=== PATIENT | male | born 1955 | race Caucasian/White ===

== ENCOUNTER 2016-06-18 19:50 | Emergency (ER) | payer MEDICARE ==
[~2016-06-18] VITALS: Ht 170.1 cm; Wt 94.3 kg
[~2016-06-18 19:50] MED LIST: ACTOPLUS MET 501 TAB PO; ACTOPLUS MET 851 TA1 PO; AMITRIPTYLINE; CELEXA40 MG PO; DIOVAN160 MG PO; DOESNT KNOW MEDS; DOXEPIN50 MG PO; GLIPIZIDE ER10 MG PO; HYDROCODONE BIT1 T55 PO; IMDUR SA30 MG PO; ISOSORBIDE30 MG PO; JANUVIA100 MG PO; LANTUS; LANTUS100 U/ML SC; LYRICA150 MG PO; METOPROLOL100 MG PO; MIRALAX POWDER17 G1 PO; MOTRIN800 MG PO; NEURONTIN300 MG PO; NOVOLOG; NOVOLOG (INSULI10 ML IV; NOVOLOG100 U/ML SC; OPANA10 MG PO; PEN-VEE K500 MG PO; PERCOCET 325 MG1 TA6 PO; PLAVIX75 MG PO; PRAVACHOL40 MG PO; PRIMIDONE50 MG PO; ROZEREM8 MG PO; SEPTRA DS 800 M1 TAB PO; SEROQUEL XR150 MG PO; TRAZODONE50 MG PO; TRIFLUOPERAZINE PO; TRILIPIX; TRILIPIX45 M1 PO; VICODIN 500 MG-1 TAB PO; VITAMIN D2400 IU PO; ZANTAC 150150 MG PO; ZETIA10 MG PO
[2016-06-18 19:58] VITALS: BP 162/83
[2016-06-18] MEDS ORDERED: PERCOCET 325 MG1 TA7 PO (20:00)
[2016-06-18] MEDS ORDERED: CYCLOBENZAPRINE10 MG PO (21:20)
[2016-06-18] MEDS ORDERED: NAPROSYN500 MG PO (21:20)
== END 2016-06-18 21:24 | disposition home or self-care (01) ==
LOC: ED 19:50
DX: S39.012A Strain of muscle, fascia and tendon of lower back, initial encounter (principal); Z79.4 Long term (current) use of insulin; X58.XXXA Exposure to other specified factors, initial encounter; Y93.89 Activity, other specified; Y92.9 Unspecified place or not applicable; Y99.9 Unspecified external cause status

== ENCOUNTER 2016-09-02 10:59 | Emergency (ER) | payer MEDICARE ==
[~2016-09-02] VITALS: Ht 177.8 cm; Wt 102.1 kg
[~2016-09-02 10:59] MED LIST changes: +CYCLOBENZAPRINE10 MG PO; +NAPROSYN500 MG PO; +PERCOCET 325 MG1 TA7 PO
[2016-09-02 11:05] VITALS: BP 135/93
[2016-09-02 11:15] LABS: BASO # 0.1 10*3/uL (0.0-0.1); BASO % 0.5 % (0.0-1.0); EOS # 0.2 10*3/uL (0.0-0.4); EOS % 1.8 % (1.0-4.0); HEMATOCRIT 41.7 % (42.0-52.0); HEMOGLOBIN 14.2 g/dl (14.0-18.0); LYMPH # 2.2 10*3/uL (1.3-4.4); LYMPH % 19.8 % (27.0-41.0); MEAN CELL VOLUME 93.7 fl (80.0-94.0); MEAN CORPUSCULAR HGB 31.9 pg (27.0-31.0); MEAN CORPUSCULAR HGB CONC 34.1 g/dl (33.0-37.0); MEAN PLATELET VOLUME 10.5 fl (9.6-12.3); MONO # 1.3 10*3/uL (0.1-1.0); MONO % 12.3 % (3.0-9.0); NEUT # 7.1 10*3/uL (2.3-7.9); NEUT % 65.2 % (47.0-73.0); PLATELET COUNT AUTOMATED 321 10*3/uL (130-400); RED BLOOD COUNT 4.45 10*6/uL (4.50-5.90); RED CELL DISTRI WIDTH 14.4 % (0-14.5); WHITE BLOOD COUNT 10.9 10*3/uL (4.8-10.8)
[2016-09-02 11:25] LABS: BUN 24 mg/dl (7-24); CARBON DIOXIDE 29 mmol/L (21-32); CHLORIDE 99 mmol/L (98-107); EST GLOM FILT AFRICAN AMERICAN > 60 ml/min; GLUCOSE 222 mg/dL (65-99); SODIUM 139 mmol/L (136-145)
[2016-09-02] MEDS ORDERED: IBUPROFEN600 MG PO (12:48)
[2016-09-02] MEDS ORDERED: ULTRAM50 MG PO (12:48)
== END 2016-09-02 14:02 | disposition home or self-care (01) ==
LOC: ED 10:59
PROVIDERS: Emergency Medicine
DX: S92.355A Nondisplaced fracture of fifth metatarsal bone, left foot, initial encounter for closed fracture (principal); S92.345A Nondisplaced fracture of fourth metatarsal bone, left foot, initial encounter for closed fracture; S92.335A Nondisplaced fracture of third metatarsal bone, left foot, initial encounter for closed fracture; S20.211A Contusion of right front wall of thorax, initial encounter; Z98.890 Other specified postprocedural states; Z79.899 Other long term (current) drug therapy; W19.XXXA Unspecified fall, initial encounter; Y93.89 Activity, other specified; Y92.89 Other specified places as the place of occurrence of the external cause; Y99.9 Unspecified external cause status

== ENCOUNTER → 2016-10-23 | Outpatient (CLI) | payer MEDICARE ==
[~2016-10-23] MED LIST changes: +IBUPROFEN600 MG PO; +ULTRAM50 MG PO
== END | disposition home or self-care (01) ==
LOC: RAD 12:08
DX: S92.902D Unspecified fracture of left foot, subsequent encounter for fracture with routine healing (principal); X58.XXXD Exposure to other specified factors, subsequent encounter

== ENCOUNTER → 2017-05-22 | Outpatient (CLI) | payer MEDICARE | END | disposition home or self-care (01) | LOC: RAD 09:28 | DX: M17.12 Unilateral primary osteoarthritis, left knee (principal) ==

== ENCOUNTER → 2018-10-17 | Outpatient (CLI) | payer MEDICARE ==
[~2018-10-17] MED LIST changes: +DOXYCYCLINE100 M3 PO; +DOXYCYCLINE100 MG PO; +FETZIMA40 M1 PO; +LANTUS SOL100 UNIT/1 SQ; -LANTUS100 U/ML SC; +LYRICA150 M1 PO; -LYRICA150 MG PO; +Mysoline50 MG PO; +OMEPRAZOLE40 MG PO; +PERCOCET 5-3251 EACH PO; -PRIMIDONE50 MG PO; +SEPTDS PO; +TAMSULOSIN HCL0.4 MG PO; +ZANAFLEX4 M1 PO
== END | disposition home or self-care (01) ==
LOC: WOUNDCARE 10-10 15:20 → EDSTATUS 15:31 → WOUNDCARE 15:32
DX: L02.211 Cutaneous abscess of abdominal wall (principal); S31.104A Unspecified open wound of abdominal wall, left lower quadrant without penetration into peritoneal cavity, initial encounter; I25.10 Atherosclerotic heart disease of native coronary artery without angina pectoris; E11.40 Type 2 diabetes mellitus with diabetic neuropathy, unspecified; I10 Essential (primary) hypertension; K21.9 Gastro-esophageal reflux disease without esophagitis; E78.5 Hyperlipidemia, unspecified; I25.2 Old myocardial infarction; E55.9 Vitamin D deficiency, unspecified; Z95.818 Presence of other cardiac implants and grafts; X58.XXXA Exposure to other specified factors, initial encounter; Y93.89 Activity, other specified; Y92.89 Other specified places as the place of occurrence of the external cause; Y99.8 Other external cause status

== ENCOUNTER → 2018-10-22 | Outpatient (CLI) | payer MEDICARE | END | disposition home or self-care (01) | LOC: WOUNDCARE 00:44 | DX: L02.211 Cutaneous abscess of abdominal wall (principal); S31.104D Unspecified open wound of abdominal wall, left lower quadrant without penetration into peritoneal cavity, subsequent encounter; I25.10 Atherosclerotic heart disease of native coronary artery without angina pectoris; E11.40 Type 2 diabetes mellitus with diabetic neuropathy, unspecified; I10 Essential (primary) hypertension; K21.9 Gastro-esophageal reflux disease without esophagitis; E78.5 Hyperlipidemia, unspecified; I25.2 Old myocardial infarction; E55.9 Vitamin D deficiency, unspecified; X58.XXXD Exposure to other specified factors, subsequent encounter ==

== ENCOUNTER → 2018-10-29 | Outpatient (CLI) | payer MEDICARE | END | disposition home or self-care (01) | LOC: WOUNDCARE 01:38 | DX: L02.211 Cutaneous abscess of abdominal wall (principal); S31.104D Unspecified open wound of abdominal wall, left lower quadrant without penetration into peritoneal cavity, subsequent encounter; I25.10 Atherosclerotic heart disease of native coronary artery without angina pectoris; E11.40 Type 2 diabetes mellitus with diabetic neuropathy, unspecified; I10 Essential (primary) hypertension; K21.9 Gastro-esophageal reflux disease without esophagitis; E78.5 Hyperlipidemia, unspecified; I25.2 Old myocardial infarction; E55.9 Vitamin D deficiency, unspecified; X58.XXXD Exposure to other specified factors, subsequent encounter ==

== ENCOUNTER → 2018-11-05 | Outpatient (CLI) | payer MEDICARE | END | disposition home or self-care (01) | LOC: WOUNDCARE 01:41 | DX: L02.211 Cutaneous abscess of abdominal wall (principal); S31.104D Unspecified open wound of abdominal wall, left lower quadrant without penetration into peritoneal cavity, subsequent encounter; E11.40 Type 2 diabetes mellitus with diabetic neuropathy, unspecified; I10 Essential (primary) hypertension; I25.10 Atherosclerotic heart disease of native coronary artery without angina pectoris; I25.2 Old myocardial infarction; K21.9 Gastro-esophageal reflux disease without esophagitis; E78.5 Hyperlipidemia, unspecified; E55.9 Vitamin D deficiency, unspecified; H49.20 Sixth [abducent] nerve palsy, unspecified eye; X58.XXXD Exposure to other specified factors, subsequent encounter ==

== ENCOUNTER → 2018-11-20 | Outpatient (CLI) | payer MEDICARE ==
[2018-11-20 15:35] LABS: BASO # 0.1 10*3/uL (0.0-0.1); BASO % 0.5 % (0.0-1.0); EOS # 0.2 10*3/uL (0.0-0.4); EOS % 1.8 % (1.0-4.0); HEMATOCRIT 43.9 % (42.0-52.0); HEMOGLOBIN 14.6 g/dl (14.0-18.0); LYMPH # 3.1 10*3/uL (1.3-4.4); LYMPH % 30.9 % (27.0-41.0); MEAN CELL VOLUME 94.6 fl (80.0-94.0); MEAN CORPUSCULAR HGB 31.5 pg (27.0-31.0); MEAN CORPUSCULAR HGB CONC 33.3 g/dl (33.0-37.0); MEAN PLATELET VOLUME 11.1 fl (9.6-12.3); MONO % 9.6 % (3.0-9.0); NEUT # 5.6 10*3/uL (2.3-7.9); NEUT % 56.7 % (47.0-73.0); PLATELET COUNT AUTOMATED 330 10*3/uL (130-400); RED BLOOD COUNT 4.64 10*6/uL (4.50-5.90); RED CELL DISTRI WIDTH 13.5 % (0-14.5); WHITE BLOOD COUNT 9.9 10*3/uL (4.8-10.8)
[2018-11-20 15:58] LABS: ALBUMIN 3.4 gm/dl (3.1-4.5); BUN 11 mg/dl (7-24); CHLORIDE 104 mmol/L (98-107); SGPT/ALT 22 U/L (12-78); SODIUM 137 mmol/L (136-145)
[2018-11-20 16:12] LABS: ALKALINE PHOSPHATASE 107 U/L (45-117); CREATININE 0.84 mg/dL (0.70-1.30); SGOT/AST 12 IU/L (3-35); TOTAL PROTEIN 7.2 gm/dL (6.4-8.2)
== END | disposition home or self-care (01) ==
LOC: LAB 14:04
PROVIDERS: Internal Medicine
DX: J43.9 Emphysema, unspecified (principal); E11.9 Type 2 diabetes mellitus without complications; I10 Essential (primary) hypertension; Z87.891 Personal history of nicotine dependence; Z79.899 Other long term (current) drug therapy

== ENCOUNTER → 2019-02-24 | Outpatient (CLI) | payer MEDICARE | END | disposition home or self-care (01) | LOC: NM 02-19 12:52 | DX: R10.13 Epigastric pain (principal); R11.2 Nausea with vomiting, unspecified; E11.9 Type 2 diabetes mellitus without complications; I10 Essential (primary) hypertension; I25.10 Atherosclerotic heart disease of native coronary artery without angina pectoris ==

== ENCOUNTER → 2019-06-02 | Outpatient (CLI) | payer MEDICARE ==
[2019-06-02 17:03] LABS: BASO % 0.4 % (0.0-1.0); EOS # 0.1 10*3/uL (0.0-0.4); EOS % 1.3 % (1.0-4.0); HEMATOCRIT 45.7 % (42.0-52.0); HEMOGLOBIN 15.5 g/dl (14.0-18.0); LYMPH # 3.2 10*3/uL (1.3-4.4); LYMPH % 30.7 % (27.0-41.0); MEAN CELL VOLUME 91.6 fl (80.0-94.0); MEAN CORPUSCULAR HGB 31.1 pg (27.0-31.0); MEAN CORPUSCULAR HGB CONC 33.9 g/dl (33.0-37.0); MEAN PLATELET VOLUME 10.9 fl (9.6-12.3); MONO # 1.1 10*3/uL (0.1-1.0); MONO % 10.3 % (3.0-9.0); NEUT % 56.8 % (47.0-73.0); PLATELET COUNT AUTOMATED 353 10*3/uL (130-400); RED BLOOD COUNT 4.99 10*6/uL (4.50-5.90); RED CELL DISTRI WIDTH 13.9 % (0-14.5); WHITE BLOOD COUNT 10.6 10*3/uL (4.8-10.8)
[2019-06-02 17:21] LABS: ALBUMIN 3.6 gm/dl (3.1-4.5); ALKALINE PHOSPHATASE 107 U/L (45-117); BUN 8 mg/dl (7-24); CHLORIDE 108 mmol/L (98-107); CREATININE 0.85 mg/dL (0.70-1.30); POTASSIUM 3.7 mmol/L (3.5-5.1); SGOT/AST 19 IU/L (3-35); SGPT/ALT 24 U/L (12-78); SODIUM 138 mmol/L (136-145); TOTAL PROTEIN 7.4 gm/dL (6.4-8.2)
== END | disposition home or self-care (01) ==
LOC: LAB 16:16
PROVIDERS: Internal Medicine
DX: J44.9 Chronic obstructive pulmonary disease, unspecified (principal)

== ENCOUNTER → 2019-06-24 | Outpatient (CLI) | payer MEDICARE ==
--- NOTE | 2019-06-24 10:38 | NUR ---
INFORMED CONSENT SIGNED FOR LEXISCAN STRESS TEST WITH DR. PARKS. RESTING EKG NSR, HR 92, BP 164/78. PULSE OX 96% AND LUNGS CLEAR. COMPLETED ONE MINUTE OF LEXISCAN PROTOCOL RECEIVING LEXISCAN 0.4MG OVER 10 SECONDS. ISOLATED PVC'S NOTED WITH NO ST CHANGES. PT C/O SOB AND LIGHTHEADEDNESS. LAST RECOVERY HR 105, BP 134/72. WAITING NUCLEAR SCANNING IN STABLE CONDITION.
== END | disposition home or self-care (01) ==
LOC: CARD 00:23
DX: R06.02 Shortness of breath (principal)

== ENCOUNTER → 2020-01-26 | Outpatient (CLI) | payer MEDICARE ==
[2020-01-26 14:09] LABS: BASO % 0.4 % (0.0-1.0); EOS # 0.2 10*3/uL (0.0-0.4); EOS % 2.6 % (1.0-4.0); HEMATOCRIT 45.3 % (42.0-52.0); LYMPH # 2.9 10*3/uL (1.3-4.4); LYMPH % 30.9 % (27.0-41.0); MEAN CELL VOLUME 92.8 fl (80.0-94.0); MEAN CORPUSCULAR HGB 31.4 pg (27.0-31.0); MEAN CORPUSCULAR HGB CONC 33.8 g/dl (33.0-37.0); MEAN PLATELET VOLUME 10.7 fl (9.6-12.3); MONO # 0.9 10*3/uL (0.1-1.0); MONO % 9.3 % (3.0-9.0); NEUT # 5.3 10*3/uL (2.3-7.9); NEUT % 56.5 % (47.0-73.0); PLATELET COUNT AUTOMATED 338 10*3/uL (130-400); RED BLOOD COUNT 4.88 10*6/uL (4.50-5.90); RED CELL DISTRI WIDTH 14.2 % (0-14.5); WHITE BLOOD COUNT 9.4 10*3/uL (4.8-10.8)
[2020-01-26 14:43] LABS: BUN 6 mg/dl (7-24); CHLORIDE 110 mmol/L (98-107); CREATININE 0.72 mg/dL (0.70-1.30); FREE T4 1.02 ng/dl (0.76-1.46); POTASSIUM 3.6 mmol/L (3.5-5.1); SODIUM 141 mmol/L (136-145)
== END | disposition home or self-care (01) ==
LOC: LAB 13:33
PROVIDERS: Internal Medicine
DX: J44.9 Chronic obstructive pulmonary disease, unspecified (principal); I11.0 Hypertensive heart disease with heart failure; I50.30 Unspecified diastolic (congestive) heart failure; E11.9 Type 2 diabetes mellitus without complications

== ENCOUNTER 2020-03-09 08:24 | Inpatient (IN) | payer MEDICARE ==
[~2020-03-09] VITALS: Ht 170.1 cm; Wt 120.9 kg
[~2020-03-09 08:24] MED LIST changes: +LOPRESSOR100 M1 PO; -METOPROLOL100 MG PO
[2020-03-09 08:33] VITALS: BP 92/55
[2020-03-09 09:29] LABS: BASO % 0.2 % (0.0-1.0); EOS # 0.3 10*3/uL (0.0-0.4); EOS % 2.1 % (1.0-4.0); LYMPH # 2.9 10*3/uL (1.3-4.4); LYMPH % 22.1 % (27.0-41.0); MEAN CELL VOLUME 95.4 fl (80.0-94.0); MEAN CORPUSCULAR HGB 30.7 pg (27.0-31.0); MEAN CORPUSCULAR HGB CONC 32.2 g/dl (33.0-37.0); MEAN PLATELET VOLUME 10.7 fl (9.6-12.3); MONO # 1.4 10*3/uL (0.1-1.0); MONO % 10.7 % (3.0-9.0); NEUT # 8.4 10*3/uL (2.3-7.9); NEUT % 64.5 % (47.0-73.0); PLATELET COUNT AUTOMATED 365 10*3/uL (130-400); RED BLOOD COUNT 4.82 10*6/uL (4.50-5.90); WHITE BLOOD COUNT 13.1 10*3/uL (4.8-10.8)
--- NOTE | 2020-03-09 09:44 | NUR ---
PT STILL IN X-RAY, ATTEMPT FOR IV WHEN PT RETURNS
[2020-03-09 09:46] LABS: ACT PARTIAL THROMBO TIME 31.3 SECONDS (20.0-32.1)
[2020-03-09 09:48] LABS: ALBUMIN 3.4 gm/dl (3.1-4.5); ALKALINE PHOSPHATASE 136 U/L (45-117); BUN 11 mg/dl (7-24); CHLORIDE 106 mmol/L (98-107); CPK 67 U/L (39-308); CREATININE 0.88 mg/dL (0.70-1.30); POTASSIUM 4.2 mmol/L (3.5-5.1); SGOT/AST 8 IU/L (3-35); SGPT/ALT 20 U/L (12-78); SODIUM 137 mmol/L (136-145); TOTAL PROTEIN 7.2 gm/dL (6.4-8.2)
[2020-03-09 09:51] LABS: TROPONIN I < 0.015 ng/ml (<0.045)
[2020-03-09 10:24] LABS: BILIRUBIN Negative; BLOOD Negative (Negative); CLARITY Clear (Clear); COLOR Yellow (Yellow); GLUCOSE 3+; KETONE Trace; LEUKO ESTERASE Negative (Negative); NITRITE Negative (Negative); SPECIFIC GRAVITY >= 1.030 (1.001-1.030); UROBILINOGEN 0.2 E.U./dl (0.0-1.0)
[2020-03-09 10:25] LABS: CALCIUM OXALATE CRYSTALS 1+
--- NOTE | 2020-03-09 11:20 | NUR ---
RM 421 BEING CLEANED FOR TRANSPORT
[2020-03-09] MEDS ORDERED: PERCOCET 7.5-31 EACH PO (11:30)
[2020-03-09] MEDS ORDERED: JARDIANCE25 MG PO (11:35)
[2020-03-09] MEDS ORDERED: LOSARTAN POTASS50 M1 PO (11:59)
[2020-03-09 12:15] VITALS: BP 116/61
--- NOTE | 2020-03-09 12:15 | NUR ---
A 64, admitted to , under the services of EMEKA Doran MD with a diagnosis of FALL, UNABLE TO AMBULATE. Chief complaint is SYNCOPE. Patient arrived via ambulance from ER. Monitor applied. Initial assessment completed. Vital signs taken and recorded. EMEKA DORAN MD notified of admission to the unit. Orders received. See assessment for past medical history, medications and allergies. Patient and/or family oriented to unit. [facility] visitation policy reviewed. Clothing/patient valuable form completed. BUD SILVA
--- NOTE | 2020-03-09 12:31 | NUR ---
MED REC UPDATED VIA CLAIM HISTORY.
--- NOTE | 2020-03-09 12:33 | NUR ---
, RESIDENT WITH IN TO SEE PT AT THIS TIME. INFORMED MED REC WAS UPDATED.
[2020-03-09] MEDS ORDERED: ASPIRIN ADULT L81 M1 PO (12:36)
[2020-03-09] MEDS ORDERED: NITROSTAT0.3 M1 SL (12:37)
--- NOTE | 2020-03-09 14:10 | NUR ---
PATIENT INSTRUCTED ON FLUTTER Q1, GOOD PATIENT EFFORT.
--- NOTE | 2020-03-09 14:46 | NUR ---
ABEL PAGAN NOTIFIED OF SURGICAL CONSULT. SAID SHE WOULD COME TO SEE HIM.
[2020-03-09 16:00] VITALS: BP 126/59
--- NOTE | 2020-03-09 16:13 | NUR ---
RODRIGUE NOTIFIED OF NEW CONSULT FOR . SAID SHE WOULD NOTIFY HIM.
--- NOTE | 2020-03-09 16:18 | NUR ---
NOTIFIED OF NEW CONSULT. SAID HE WOULD SEE THE PT TOMORROW MORNING. INFORMED THAT HE IS SCHEDULED FOR AN EGD IN THE MORNING. SAID OK.
--- NOTE | 2020-03-09 16:46 | NUR ---
DILAUDID GIVEN FOR PAIN RATED 9/10 TO RT FLANK. WILL MONITOR. CALL LIGHT IN REACH.
--- NOTE | 2020-03-09 17:18 | NUR ---
PER PT, DIALUDID WAS EFFECTIVE. CALL LIGHT IN REACH.
[2020-03-09 17:35] LABS: BILIRUBIN Negative; BLOOD Negative (Negative); CLARITY Clear (Clear); COLOR Yellow (Yellow); GLUCOSE 3+; KETONE Trace; SPECIFIC GRAVITY > 1.030 (1.001-1.030)
[2020-03-09 17:36] LABS: LEUKO ESTERASE Negative (Negative); NITRITE Negative (Negative); UROBILINOGEN 0.2 E.U./dl (0.0-1.0)
[2020-03-09 17:39] LABS: BACTERIA TRACE; EPITHELIAL CELLS 0-2; RBC 0-2 rbc/hpf (0-2); WBC 0-2 wbc/hpf (0-5)
--- NOTE | 2020-03-09 19:38 | NUR ---
24 HR chart check completed.
[2020-03-09 20:00] VITALS: BP 141/71
--- NOTE | 2020-03-09 20:16 | NUR ---
RESTING IN BED. RESPIRATIONS EASY. LUNGS DIMINISHED, CLEAR. PULSE OX 97% RA. MEDICATED WITH PERCOCET PER PRN ORDER FOR COMPLAINTS OF RIGHT SIDED RIB PAIN RATING AN 8. CALL LIGHT WITHIN REACH. WILL MONITOR
--- NOTE | 2020-03-09 21:00 | NUR ---
EARLIER PERCOCET EFFECTIVE. RESTING WITH EYES CLOSED. RESPIRATIONS EASY. CALL LIGHT WITHIN REACH
--- NOTE | 2020-03-09 22:00 | NUR ---
BSG 192, DECLINES SS COVERAGE BUT COVERED WITH LANTUS. WILL MONITOR
[2020-03-10] VITALS (9 sets, daily range): BP systolic 111–154; BP diastolic 32–81
--- NOTE | 2020-03-10 | NUR ---
SLEEPING. NO S/S DISTRESS NOTED. RESPIRATIONS EASY. VSS. CALL LIGHT WITHIN REACH.
--- NOTE | 2020-03-10 04:05 | NUR ---
SLEEPING. NO DISTRESS NOTED. RESPIRATIONS EASY. CALL LIGHT WITHIN REACH
--- NOTE | 2020-03-10 06:00 | NUR ---
SLEPT THROUGHOUT NIGHT WITH NO DISTRESS NOTED. RESPIRATIONS EASY. CALL LIGHT WITHIN REACH. NO VOICED COMPLAINTS THIS SHIFT. NPO FOR EGD THIS AM.
[2020-03-10 06:40] LABS: BASO % 0.3 % (0.0-1.0); EOS # 0.3 10*3/uL (0.0-0.4); EOS % 3.2 % (1.0-4.0); HEMATOCRIT 46.5 % (42.0-52.0); LYMPH # 2.6 10*3/uL (1.3-4.4); LYMPH % 25.1 % (27.0-41.0); MEAN CELL VOLUME 95.7 fl (80.0-94.0); MEAN CORPUSCULAR HGB 31.5 pg (27.0-31.0); MEAN CORPUSCULAR HGB CONC 32.9 g/dl (33.0-37.0); MEAN PLATELET VOLUME 10.8 fl (9.6-12.3); MONO # 1.2 10*3/uL (0.1-1.0); MONO % 11.5 % (3.0-9.0); NEUT # 6.2 10*3/uL (2.3-7.9); NEUT % 59.3 % (47.0-73.0); PLATELET COUNT AUTOMATED 314 10*3/uL (130-400); RED BLOOD COUNT 4.86 10*6/uL (4.50-5.90); WHITE BLOOD COUNT 10.5 10*3/uL (4.8-10.8)
[2020-03-10 07:02] LABS: BUN 14 mg/dl (7-24); CHLORIDE 109 mmol/L (98-107); CREATININE 0.51 mg/dL (0.70-1.30); POTASSIUM 3.8 mmol/L (3.5-5.1); SODIUM 138 mmol/L (136-145)
--- NOTE | 2020-03-10 07:30 | NUR ---
TAKEN TO OR FOR EGD.
--- NOTE | 2020-03-10 09:00 | NUR ---
Fork Repairer in to talk to patient. Patient states lives at home with his step-son and his family checking in on him. There are no steps in the home. Physician: Dr. Westley Daly [facility]: [facility] Home health services: none Patient's level of ADLs: MINIMAL ASSIST Patient has working utilities: yes DME: cane Follow-up physician's appointment after d/c: he prefers to make his own follow up appt after discharge Does patient want to access PORTAL?: no Discharge plan discussed with patient. He lives at home with his step-son and family checking in on him. He is independent in his ADLs and ambulates with a cane. Discussed short term SNF and home health care services and he declines. CM will continue to follow for any discharge planning needs. When medically stable he will be discharged to home. He states he is unsure of discharge transportation at this time. He states he is awaiting his knee to be drained and injected. ABEL COOMBS
--- NOTE | 2020-03-10 09:31 | NUR ---
MEDICATED WITH PRN PERCOCET PER ORDER AND REQUEST FOR R SIDE AND L KNEE PAIN.
--- NOTE | 2020-03-10 10:20 | NUR ---
PERCOCET HELPED SOME.
--- NOTE | 2020-03-10 11:02 | NUR ---
AT BEDSIDE DRAINING FLUID FROM LEFT KNEE.
--- NOTE | 2020-03-10 12:13 | NUR ---
PHYSICAL THERAPY Nursing screen received and chart reviewed. PT order received. Will follow to complete skilled PT evaluation. Thank you. Piper Castellanos,PT,DPT
--- NOTE | 2020-03-10 12:30 | NUR ---
PATIENT TO RADIOLOGY FOR CT KNEE AND MODIFIED BARIUM SWALLOW.
--- NOTE | 2020-03-10 12:35 | NUR ---
SPEECH PATHOLOGY Modified barium swallow completed as per orders due to patient reports of dysphagia with solid and liquid. He reported coughing episodes intermittently which have occurred over the past month. Medical history includes inability to ambulate due to recent fall at home, DM, HTN, CAD, GERD, depression, back pain, cranial nerve palsy, essential tremor, hx of throat surgery in the past. Patient stated that he had fatty tissue removed from his throat. He receives a regular diet and thin liquid. oral peripheral exam revealed presence of natural teeth with many missing. Lingual/labial and buccal skills were WNL in terms of strength, ROM and coordination. Results of MBS revealed skills essentially WFL. Transient penetration occurred with thin liquid in large sips taken by cup and straw. No penetration occurred with small sips. Recommend patient remain on present diet, with small, single sips of liquid. Short term f/u treatment is recommended to ensure safety of swallow through education and adherence to safe swallow precautions. Results and chantale. were shared with patient and his nurse and they verbalized understanding. Dictated report to follow. Thank you for this referral. DION STAPLES MS[facility]-FILM WRITER
--- NOTE | 2020-03-10 14:26 | NUR ---
PHYSICAL THERAPY Spoke with RN regarding PT evaluation and CT scan of left knee to evaluate acute fracture not seen on plain film. Nurse recommendation to hold skilled PT evaluation until further clarification of left knee CT scan. Will follow to complete skilled PT evaluation. Thank you. Piper Castellanos,PT,DPT
--- NOTE | 2020-03-10 15:18 | NUR ---
BACK TO RADIOLOGY FOR X-RAY RIBS AND CAROTID US.
--- NOTE | 2020-03-10 15:37 | NUR ---
PHYSICAL THERAPY PT evaluation attempted following CT results of Left knee showing no acute fractures. Patient out of room for radiographs of ribs and carotid doppler. Plan to attempt again at a later time/date to complete PT evaluation. Thank you. Piper Castellanos,PT,DPT
--- NOTE | 2020-03-10 16:09 | NUR ---
PHYSICAL THERAPY Physical Therapy evaluation completed on 4E with full evaluation to follow. Low complexity skilled PT evaluation per chart review and evaluation, [id number]. Recommend physical therapy per plan of care and Home with outpatient PT services upon discharge. Thank you for this referral. Piper Castellanos,PT,DPT
--- NOTE | 2020-03-10 16:33 | NUR ---
MEDICATED WITH PRN PERCOCET PER ORDER AND REQUEST L KNEE R SIDE PAIN.
--- NOTE | 2020-03-10 21:16 | NUR ---
DILAUDID GIVEN PER PT REQUEST FOR 9 PAIN TO RT RIBS. WILL REASSESS.
--- NOTE | 2020-03-10 22:16 | NUR ---
DILAUDID EFFECTIVE FOR PAIN
[2020-03-11] VITALS: BP 134/72
--- NOTE | 2020-03-11 04:00 | NUR ---
SLEEPING; RESPS EASY AND REGULAR ON ROOM AIR. CALL LIGHT IN REACH.
[2020-03-11 08:00] VITALS: BP 140/72; BP 153/71
--- NOTE | 2020-03-11 08:17 | NUR ---
SPEECH PATHOLOGY Patient was seen for f/u treatment for dysphagia this am. Patient underwent a MBS yesterday revealing transient penetration with thin liquids, when taken in large sips. He was recommended to consume small, single sips with liquids. Patient was seen this am during breakfast meal. He was able to recall results and chantale. from yesterday's swallowing study. Further education was provided regarding reasoning for small sips and aspiration risk. He verbalized understanding. He was observed eating well and implementing strategy of small sips, without cues. He displayed no overt difficulty. He denied any recent difficulty swallowing food or liquids recently. As patient is tolerating diet, displaying no s/s aspiration and using strategies independently, he will be discharged at this time. Thank you for this referral. It has been a pleasure taking part in this patient's care. DION STAPLES [facility]-CREATIVE RESOURCE MANAGER
--- NOTE | 2020-03-11 08:30 | NUR ---
CM in to see patient. No new needs or request at this time. He states his knee feels better since it was injected yesterday and his right side feels better as he was able to shower this morning. Discussed home health care services and he declines. CM will continue to follow for any discharge planning needs. When medically stable he will be discharged to home.
--- NOTE | 2020-03-11 08:49 | NUR ---
PERCOCET GIVEN PER PATIENT FOR COMPLAINTS OF RIGHT RIB PAIN RATED 7/10. WILL ASSESS EFFECTIVENESS.
--- NOTE | 2020-03-11 09:40 | NUR ---
PERCOCET EFFECTIVE PER PATIENT. WILL CONTINUE TO MONITOR. CALL LIGHT IN REACH.
--- NOTE | 2020-03-11 11:13 | NUR ---
PT IN TO SEE PATIENT. PATIENT WALKING WELL WEARING KNEE IMMOBILIZER AND USING WALKER. PATIENT WALKED DOWN SIERRA AND AROUND ROOM WITH NO VISUAL DIFFICULTY.
--- NOTE | 2020-03-11 11:21 | NUR ---
PHYSICAL THERAPY Patient seen this am 1;1 for therapy visit and was supine in bed upon therapist arrival. Patient identified by name / and reports no c/o's pain at this time. Patient states his L knee is feeling much better since being drained and is required use of L knee Immobilizer brace for all standing activities. Patient transfers supine to sit EOB with SBA x 1 and educated on proper blanca/doff of L knee Immobilizer brace. Patient needed Therapist assist for proper fit and voiced his understanding, stating the brace feels better already. Patient also stated he will have family assist PRN when he returns home and completes sit to stand transfer SBA, prior to ambulating 100'x 1, use of wh walker, SBA. Patient demonstrated, slow, steady stride and no LOB as he returned to EOB sit. Patient transfered sit to supine and was Independent taking brace off in bed. Patient remained in bed with call light, tray table and telephone. Will continue per POC as tolerated, total treatment time 17 minutes. Catrachito Suarez, SIDE LASTER TACK
[2020-03-11 12:00] VITALS: BP 132/59
--- NOTE | 2020-03-11 13:10 | NUR ---
PHYSICAL THERAPY Patient seen this pm 1;1 for therapy visit and was sitting up on EOB upon therapist arrival. Patient identified by name / and reports no new c/o's at this time. Patient assisted with donning L knee Immobiizer brace prior to transferimg sit to stand Supervision and ambulated with use of st cane, 50'x 1, SBA, demonstrating initial "step to" willard. Following v/c, patient improved step sequence to smoother stride and returned to EOB sit. Patient transfered to supine in bed and was able to remove L knee brace, remaining in bed with call light, tray table, telephone. Patient stated he has a cane in his car and uses it at home for gait. Patient demonstrated Fair + safety awareness during gait training and no LOB this session. Will continue per POC as tolerated, total treatment time 14 minutes. Catrachito Suarez, MECHANIC AND WELDER
--- NOTE | 2020-03-11 15:37 | NUR ---
MEDICATED WITH PRN PERCOCET PER ORDER AND REQUEST.
[2020-03-11 16:00] VITALS: BP 168/66
--- NOTE | 2020-03-11 19:18 | NUR ---
PATIENT TO BE DISCHARGED TO HOME.
--- NOTE | 2020-03-11 19:49 | NUR ---
The Discharge Plan/Instructions have been completed. PATIENT ESCORTED TO LOBBY IN WHEELCHAIR WITH ALL BELONGINGS.
--- NOTE | 2020-03-12 08:09 | NUR ---
PHYSICAL THERAPY CO-SIGN I approve of the Phyical Therapy notes written above. Montserrat Lin PT
== END 2020-03-11 19:49 | disposition home or self-care (01) | DRG 314 ==
LOC: ED 08:24 → 4E 10:55 → EDHOLD 10:55 → 4E 11:13
PROVIDERS: Emergency Medicine; ADMIT Internal Medicine; ATTEND Internal Medicine
PROC: 0DB68ZX Excision of Stomach, Via Natural or Artificial Opening Endoscopic, Diagnostic (ICD-10-PCS; principal; 2020-03-10)
PROC: 0S9D3ZZ Drainage of Left Knee Joint, Percutaneous Approach (ICD-10-PCS; 2020-03-10)
PROC: BD1BYZZ Fluoroscopy of Mouth/Oropharynx using Other Contrast (ICD-10-PCS; 2020-03-10)
DX: I95.9 Hypotension, unspecified (principal); K29.71 Gastritis, unspecified, with bleeding; E87.2 Acidosis; Z68.41 Body mass index [BMI] 40.0-44.9, adult; M25.462 Effusion, left knee; E66.01 Morbid (severe) obesity due to excess calories; E11.65 Type 2 diabetes mellitus with hyperglycemia; K21.9 Gastro-esophageal reflux disease without esophagitis; I25.10 Atherosclerotic heart disease of native coronary artery without angina pectoris; S83.412A Sprain of medial collateral ligament of left knee, initial encounter; W18.30XA Fall on same level, unspecified, initial encounter; R13.10 Dysphagia, unspecified; M17.12 Unilateral primary osteoarthritis, left knee; Z82.3 Family history of stroke; Z83.3 Family history of diabetes mellitus; Y93.89 Activity, other specified; Y92.89 Other specified places as the place of occurrence of the external cause; Y99.8 Other external cause status

== ENCOUNTER → 2020-03-30 | Outpatient (CLI) | payer MEDICARE ==
[~2020-03-30] MED LIST changes: +ASPIRIN ADULT L81 M1 PO; +JARDIANCE25 MG PO; +LOSARTAN POTASS50 M1 PO; +NITROSTAT0.3 M1 SL; +PERCOCET 7.5-31 EACH PO
[2020-03-30 11:33] LABS: BASO # 0.1 10*3/uL (0.0-0.1); BASO % 0.5 % (0.0-1.0); EOS # 0.3 10*3/uL (0.0-0.4); EOS % 2.7 % (1.0-4.0); HEMATOCRIT 46.2 % (42.0-52.0); LYMPH # 3.8 10*3/uL (1.3-4.4); LYMPH % 32.6 % (27.0-41.0); MEAN CELL VOLUME 95.3 fl (80.0-94.0); MEAN CORPUSCULAR HGB 31.5 pg (27.0-31.0); MEAN CORPUSCULAR HGB CONC 33.1 g/dl (33.0-37.0); MEAN PLATELET VOLUME 10.6 fl (9.6-12.3); MONO # 1.1 10*3/uL (0.1-1.0); MONO % 9.2 % (3.0-9.0); NEUT # 6.5 10*3/uL (2.3-7.9); NEUT % 54.7 % (47.0-73.0); PLATELET COUNT AUTOMATED 355 10*3/uL (130-400); RED BLOOD COUNT 4.85 10*6/uL (4.50-5.90); RED CELL DISTRI WIDTH 13.6 % (0-14.5); WHITE BLOOD COUNT 11.8 10*3/uL (4.8-10.8)
[2020-03-30 12:05] LABS: ALBUMIN 3.5 gm/dl (3.1-4.5); ALKALINE PHOSPHATASE 164 U/L (45-117); BUN 13 mg/dl (7-24); CHLORIDE 109 mmol/L (98-107); CREATININE 0.72 mg/dL (0.70-1.30); POTASSIUM 3.9 mmol/L (3.5-5.1); SGOT/AST 21 IU/L (3-35); SGPT/ALT 29 U/L (12-78); SODIUM 141 mmol/L (136-145); TOTAL PROTEIN 7.4 gm/dL (6.4-8.2)
== END | disposition home or self-care (01) ==
LOC: LAB 10:49
PROVIDERS: ATTEND Orthopaedic Surgery
DX: E11.9 Type 2 diabetes mellitus without complications (principal)

== ENCOUNTER → 2020-09-29 | Outpatient (CLI) | payer MEDICARE ==
[2020-09-29 13:45] LABS: HEMATOCRIT 47.1 % (42.0-52.0); MEAN CORPUSCULAR HGB 31.3 pg (27.0-31.0); MEAN CORPUSCULAR HGB CONC 33.3 g/dl (33.0-37.0); MEAN PLATELET VOLUME 10.6 fl (9.6-12.3); RED BLOOD COUNT 5.01 10*6/uL (4.50-5.90); RED CELL DISTRI WIDTH 13.9 % (0-14.5); WHITE BLOOD COUNT 9.5 10*3/uL (4.8-10.8)
[2020-09-29 14:10] LABS: BUN 10 mg/dl (7-24); CHLORIDE 106 mmol/L (98-107); CREATININE 0.79 mg/dL (0.70-1.30); POTASSIUM 4.1 mmol/L (3.5-5.1); SODIUM 138 mmol/L (136-145)
== END | disposition home or self-care (01) ==
LOC: LAB 13:06
PROVIDERS: ATTEND Internal Medicine
DX: Z01.812 Encounter for preprocedural laboratory examination (principal); E11.59 Type 2 diabetes mellitus with other circulatory complications

== ENCOUNTER 2021-01-18 15:11 | Emergency (ER) | payer MEDICARE ==
[~2021-01-18] VITALS: Ht 170.1 cm; Wt 126.1 kg
[2021-01-18 15:15] VITALS: BP 165/62
[2021-01-18] MEDS ORDERED: CEPHALEXIN500 M1 PO (16:17)
[2021-01-31] MEDS ORDERED: PERCOCET 5-3251 EACH PO (09:16)
== END 2021-01-18 17:14 | disposition home or self-care (01) ==
LOC: ED 15:11
DX: L72.3 Sebaceous cyst (principal); E11.9 Type 2 diabetes mellitus without complications; I10 Essential (primary) hypertension; K21.9 Gastro-esophageal reflux disease without esophagitis; I25.2 Old myocardial infarction; I25.10 Atherosclerotic heart disease of native coronary artery without angina pectoris; Z79.899 Other long term (current) drug therapy; Z79.4 Long term (current) use of insulin; Z87.891 Personal history of nicotine dependence

== ENCOUNTER → 2021-01-25 | Outpatient (CLI) | payer MEDICARE ==
[~2021-01-25] MED LIST changes: +CEPHALEXIN500 M1 PO
== END ==
LOC: WOUNDCARE 01:48
PROVIDERS: ATTEND Surgery
DX: L02.212 Cutaneous abscess of back [any part, except buttock and flank] (principal); D48.1 Neoplasm of uncertain behavior of connective and other soft tissue; E11.40 Type 2 diabetes mellitus with diabetic neuropathy, unspecified; I10 Essential (primary) hypertension; I25.10 Atherosclerotic heart disease of native coronary artery without angina pectoris; I25.2 Old myocardial infarction; K21.9 Gastro-esophageal reflux disease without esophagitis; E78.5 Hyperlipidemia, unspecified; E55.9 Vitamin D deficiency, unspecified; H49.20 Sixth [abducent] nerve palsy, unspecified eye

== ENCOUNTER → 2021-01-31 | Day surgery (SDC) | payer MEDICARE ==
[~2021-01-31] VITALS: Ht 170.1 cm; Wt 120.7 kg
[2021-01-31 07:28] VITALS: BP 163/68
[2021-01-31 09:14] VITALS: BP 142/66
[2021-01-31 09:29] VITALS: BP 117/26
[2021-01-31 09:46] VITALS: BP 143/62
== END | disposition home or self-care (01) ==
LOC: SDC 01-27 13:15
PROVIDERS: ATTEND Surgery
DX: L72.0 Epidermal cyst (principal); L02.212 Cutaneous abscess of back [any part, except buttock and flank]; D48.1 Neoplasm of uncertain behavior of connective and other soft tissue; I25.10 Atherosclerotic heart disease of native coronary artery without angina pectoris; I10 Essential (primary) hypertension; E11.40 Type 2 diabetes mellitus with diabetic neuropathy, unspecified; I25.2 Old myocardial infarction; F32.9 Major depressive disorder, single episode, unspecified; K21.9 Gastro-esophageal reflux disease without esophagitis; E78.00 Pure hypercholesterolemia, unspecified; Z79.899 Other long term (current) drug therapy; Z20.822 Contact with and (suspected) exposure to COVID-19

== ENCOUNTER → 2021-02-08 | Outpatient (CLI) | payer MEDICARE | LOC: WOUNDCARE 01:46 | PROVIDERS: ATTEND Nurse Practitioner | DX: T81.89XA Other complications of procedures, not elsewhere classified, initial encounter (principal); L02.212 Cutaneous abscess of back [any part, except buttock and flank]; D48.1 Neoplasm of uncertain behavior of connective and other soft tissue; E11.40 Type 2 diabetes mellitus with diabetic neuropathy, unspecified; I10 Essential (primary) hypertension; I25.10 Atherosclerotic heart disease of native coronary artery without angina pectoris; I25.2 Old myocardial infarction; K21.9 Gastro-esophageal reflux disease without esophagitis; E78.5 Hyperlipidemia, unspecified; E55.9 Vitamin D deficiency, unspecified; H49.20 Sixth [abducent] nerve palsy, unspecified eye; Y83.8 Other surgical procedures as the cause of abnormal reaction of the patient, or of later complication, without mention of misadventure at the time of the procedure; Y92.238 Other place in hospital as the place of occurrence of the external cause ==

== ENCOUNTER → 2021-02-15 | Outpatient (CLI) | payer MEDICARE | LOC: WOUNDCARE 00:40 | PROVIDERS: ATTEND Surgery | DX: L02.212 Cutaneous abscess of back [any part, except buttock and flank] (principal); D48.1 Neoplasm of uncertain behavior of connective and other soft tissue; E11.40 Type 2 diabetes mellitus with diabetic neuropathy, unspecified; I10 Essential (primary) hypertension; I25.10 Atherosclerotic heart disease of native coronary artery without angina pectoris; I25.2 Old myocardial infarction; K21.9 Gastro-esophageal reflux disease without esophagitis; E78.5 Hyperlipidemia, unspecified; E55.9 Vitamin D deficiency, unspecified; H49.20 Sixth [abducent] nerve palsy, unspecified eye ==

== ENCOUNTER → 2021-05-24 | Outpatient (CLI) | payer MEDICARE ==
[~2021-05-24] MED LIST changes: +ACID REDUCER10 MG PO; +BRILINTA90 M1 PO; +CITALOPRAM10 MG PO; +JARDIANCE10 MG PO; +POTASSIUM99 M3 PO; +TRULICITY4.5 MG/0.5 SQ
== END | disposition home or self-care (01) ==
LOC: CARD 01:05
PROVIDERS: ATTEND Internal Medicine
DX: R07.2 Precordial pain (principal)

== ENCOUNTER → 2021-07-12 | Outpatient (CLI) | payer MEDICARE | END | disposition home or self-care (01) | LOC: CARD 01:11 | PROVIDERS: ATTEND Internal Medicine | DX: R00.2 Palpitations (principal) ==

== ENCOUNTER → 2022-02-27 | Outpatient (CLI) | payer OTHER ==
[~2022-02-27] MED LIST changes: +FUROSEMIDE40 MG PO; +POTASSIUM CHLO20 ME4 PO; +RYBELSUS14 MG PO; +TIZANIDINE HCL4 MG PO; +VITAMIN D350 MCG PO
[2022-02-27 10:28] LABS: CREATININE 0.74 mg/dL (0.70-1.30)
== END | disposition home or self-care (01) ==
LOC: LAB 09:14
PROVIDERS: ATTEND Nurse Practitioner
DX: K43.2 Incisional hernia without obstruction or gangrene (principal)

== ENCOUNTER → 2022-02-28 | Outpatient (CLI) | payer OTHER | END | disposition home or self-care (01) | LOC: CT 00:03 | PROVIDERS: ATTEND Nurse Practitioner | DX: K42.9 Umbilical hernia without obstruction or gangrene (principal); K44.9 Diaphragmatic hernia without obstruction or gangrene; K76.0 Fatty (change of) liver, not elsewhere classified; N20.0 Calculus of kidney; K57.32 Diverticulitis of large intestine without perforation or abscess without bleeding; I25.10 Atherosclerotic heart disease of native coronary artery without angina pectoris; K43.2 Incisional hernia without obstruction or gangrene ==

== ENCOUNTER → 2022-04-10 | Day surgery (SDC) | payer OTHER ==
[2022-03-20 13:56] VITALS: BP 130/71
[2022-03-20 14:31] LABS: BASO # 0.1 10*3/uL (0.0-0.1); BASO % 0.4 % (0.0-1.0); EOS # 0.3 10*3/uL (0.0-0.4); HEMATOCRIT 46.7 % (42.0-52.0); LYMPH # 3.6 10*3/uL (1.3-4.4); LYMPH % 32.1 % (27.0-41.0); MEAN CELL VOLUME 93.6 fl (80.0-94.0); MEAN CORPUSCULAR HGB 31.5 pg (27.0-31.0); MEAN CORPUSCULAR HGB CONC 33.6 g/dl (33.0-37.0); MEAN PLATELET VOLUME 10.7 fl (9.6-12.3); MONO % 9.2 % (3.0-9.0); NEUT # 6.2 10*3/uL (2.3-7.9); NEUT % 55.1 % (47.0-73.0); PLATELET COUNT AUTOMATED 311 10*3/uL (130-400); RED BLOOD COUNT 4.99 10*6/uL (4.50-5.90); WHITE BLOOD COUNT 11.2 10*3/uL (4.8-10.8)
[2022-04-06 12:57] VITALS: BP 100/55
[~2022-04-10] VITALS: Ht 170.1 cm; Wt 120.2 kg
[~2022-04-10] MED LIST changes: +COLACE100 MG PO; +ONDANSETRON HYDR4 M1 PO
[2022-04-10 08:45] VITALS: BP 104/62
[2022-04-10 11:31] VITALS: BP 157/70
[2022-04-10 11:46] VITALS: BP 145/65
[2022-04-10 12:00] VITALS: BP 144/66
[2022-04-10 12:16] VITALS: BP 135/65
[2022-04-10 12:31] VITALS: BP 129/75
== END | disposition home or self-care (01) ==
LOC: SDC 03-20 13:15
PROVIDERS: ATTEND Surgery
DX: K43.0 Incisional hernia with obstruction, without gangrene (principal); I10 Essential (primary) hypertension; E11.9 Type 2 diabetes mellitus without complications; I25.10 Atherosclerotic heart disease of native coronary artery without angina pectoris; K21.9 Gastro-esophageal reflux disease without esophagitis; E78.00 Pure hypercholesterolemia, unspecified; M10.9 Gout, unspecified; I25.2 Old myocardial infarction; Z95.5 Presence of coronary angioplasty implant and graft; F32.A Depression, unspecified; Z79.899 Other long term (current) drug therapy

== ENCOUNTER 2023-06-16 21:14 | Emergency (ER) | payer OTHER ==
[2023-06-16 21:38] VITALS: BP 143/64
[2023-06-16] MEDS ORDERED: CYCLOBENZAPRINE10 MG PO (22:56)
[2023-06-18] MEDS ORDERED: HYDROCODONE-AC1 EAC1 PO (09:42)
== END 2023-06-16 23:00 | disposition home or self-care (01) ==
LOC: ED 21:14
DX: M54.50 Low back pain, unspecified (principal); M62.830 Muscle spasm of back; E11.9 Type 2 diabetes mellitus without complications; I10 Essential (primary) hypertension; I25.10 Atherosclerotic heart disease of native coronary artery without angina pectoris; F32.A Depression, unspecified; K21.9 Gastro-esophageal reflux disease without esophagitis; I25.2 Old myocardial infarction; E78.00 Pure hypercholesterolemia, unspecified; M10.9 Gout, unspecified; Z95.5 Presence of coronary angioplasty implant and graft; Z98.890 Other specified postprocedural states; F17.200 Nicotine dependence, unspecified, uncomplicated; F10.10 Alcohol abuse, uncomplicated

== ENCOUNTER → 2023-06-18 | Day surgery (SDC) | payer OTHER ==
[2023-06-14 12:06] VITALS: BP 104/45
[2023-06-14 12:54] LABS: BASO # 0.1 10*3/uL (0.0-0.1); BASO % 0.6 % (0.0-1.0); EOS # 0.5 10*3/uL (0.0-0.4); EOS % 3.7 % (1.0-4.0); HEMATOCRIT 47.9 % (42.0-52.0); LYMPH # 4.4 10*3/uL (1.3-4.4); LYMPH % 33.8 % (27.0-41.0); MEAN CELL VOLUME 93.7 fl (80.0-94.0); MEAN CORPUSCULAR HGB 30.9 pg (27.0-31.0); MEAN PLATELET VOLUME 10.7 fl (9.6-12.3); MONO # 1.3 10*3/uL (0.1-1.0); MONO % 10.2 % (3.0-9.0); NEUT # 6.7 10*3/uL (2.3-7.9); NEUT % 51.4 % (47.0-73.0); PLATELET COUNT AUTOMATED 278 10*3/uL (130-400); RED BLOOD COUNT 5.11 10*6/uL (4.50-5.90); RED CELL DISTRI WIDTH 13.7 % (0-14.5); WHITE BLOOD COUNT 13.1 10*3/uL (4.8-10.8)
[2023-06-14 13:34] LABS: BUN 11 mg/dl (9-23); CHLORIDE 106 mmol/L (98-107); POTASSIUM 4.3 mmol/L (3.4-5.1)
[~2023-06-18] VITALS: Ht 170.1 cm; Wt 103.4 kg
[~2023-06-18] MED LIST changes: +HYDROCODONE-AC1 EAC1 PO
[2023-06-18 07:30] VITALS: BP 161/66
[2023-06-18 09:30] VITALS: BP 123/59
[2023-06-18 09:45] VITALS: BP 119/62
[2023-06-18 09:58] VITALS: BP 119/59
== END ==
LOC: SDC 06-14 14:00
PROVIDERS: ATTEND Surgery
DX: C43.62 Malignant melanoma of left upper limb, including shoulder (principal); I25.2 Old myocardial infarction; I25.10 Atherosclerotic heart disease of native coronary artery without angina pectoris; I10 Essential (primary) hypertension; E11.9 Type 2 diabetes mellitus without complications; E78.00 Pure hypercholesterolemia, unspecified; Z87.891 Personal history of nicotine dependence; Z79.899 Other long term (current) drug therapy; Z90.89 Acquired absence of other organs; Z98.890 Other specified postprocedural states

== ENCOUNTER 2023-09-13 21:39 | Emergency (ER) | payer OTHER ==
[~2023-09-13] VITALS: Ht 175.2 cm; Wt 110.4 kg
[2023-09-13 21:45] VITALS: BP 96/57
[2023-09-13 22:04] LABS: HEMATOCRIT 48.3 % (42.0-52.0); MEAN CELL VOLUME 92.4 fl (80.0-94.0); MEAN CORPUSCULAR HGB 30.8 pg (27.0-31.0); MEAN CORPUSCULAR HGB CONC 33.3 g/dl (33.0-37.0); PLATELET COUNT AUTOMATED 308 10*3/uL (130-400); RED BLOOD COUNT 5.23 10*6/uL (4.50-5.90); RED CELL DISTRI WIDTH 13.8 % (0-14.5); WHITE BLOOD COUNT 13.4 10*3/uL (4.8-10.8)
[2023-09-13 22:05] LABS: MANUAL DIFF REFLEX YES
[2023-09-13 22:24] LABS: ALKALINE PHOSPHATASE 172 U/L (46-116); ATYPICAL LYMPHS 2 % (0-0); BUN 12 mg/dl (9-23); CHLORIDE 104 mmol/L (98-107); LIPASE 30 U/L (12-53); POTASSIUM 3.5 mmol/L (3.4-5.1); SGPT/ALT 39 U/L (5-49); TOTAL CELLS COUNTED 100 #CELLS
[2023-09-13 22:25] LABS: PLATELET SUFFICIENCY NORMAL (NORMAL)
[2023-09-14 00:21] LABS: BILIRUBIN Negative (Negative); BLOOD Negative (Negative); CLARITY Clear (Clear); COLOR Yellow (Yellow); GLUCOSE 3+ (Negative); KETONE 2+ (Negative); LEUKO ESTERASE Negative (Negative); NITRITE Negative (Negative); PH 5.5 (4.5-8.0); SPECIFIC GRAVITY >= 1.030 (1.001-1.030); UROBILINOGEN 0.2 E.U./dl (0.0-1.0)
[2023-09-14 00:28] LABS: RBC 0-2 rbc/hpf (0-2); WBC 0-2 wbc/hpf (0-5)
[2023-09-14] MEDS ORDERED: Acetaminophen/Oxycodone 5 MG/325 MG TABLET PO ONE (01:10)
[2023-09-14] MEDS ORDERED: PERCOCET 5-3251 EACH PO (01:10)
== END 2023-09-14 01:21 | disposition home or self-care (01) ==
LOC: ED 21:39
PROVIDERS: Internal Medicine
DX: S22.42XA Multiple fractures of ribs, left side, initial encounter for closed fracture (principal); M79.672 Pain in left foot; E11.9 Type 2 diabetes mellitus without complications; I10 Essential (primary) hypertension; I25.10 Atherosclerotic heart disease of native coronary artery without angina pectoris; F32.A Depression, unspecified; K21.9 Gastro-esophageal reflux disease without esophagitis; I25.2 Old myocardial infarction; E78.00 Pure hypercholesterolemia, unspecified; M10.9 Gout, unspecified; Z98.890 Other specified postprocedural states; F17.200 Nicotine dependence, unspecified, uncomplicated; F10.10 Alcohol abuse, uncomplicated; W19.XXXA Unspecified fall, initial encounter; Y93.89 Activity, other specified; Y92.89 Other specified places as the place of occurrence of the external cause; Y99.8 Other external cause status

== ENCOUNTER → 2023-10-29 | Outpatient (CLI) | payer OTHER | END | disposition home or self-care (01) | LOC: US 02:17 | PROVIDERS: ATTEND Internal Medicine | DX: M79.604 Pain in right leg (principal) ==

== ENCOUNTER → 2024-05-14 | Day surgery (SDC) | payer OTHER ==
[~2024-05-14] VITALS: Ht 1737 cm; Wt 98.9 kg
[~2024-05-14] MED LIST changes: +Balanced Salt Solution 500 ML OPH SCH; +CARAFATE1 G1 PO; +Cefuroxime Sodium 5 MG in BALANCED SALT IRRIG SOLN NO.2 0.5 ML,SYRINGE, DISPOSABLE, 10 ... IO SCH; +Cyclopentolate Hydrochloride 1% 2 ML BOTTLE OPH ONE; +Cyclopentolate Hydrochloride 1% 2 ML BOTTLE OPH SCH; +ERTAPENEM1 GM IV; +MICAFUNGIN100 MG IV; +Midazolam Hydrochloride 2 MG/2 ML VIAL IV ONE; +OFLOXACIN 0.3% 5 ML BOTTLE ONE; +OFLOXACIN 0.3% 5 ML BOTTLE OPH SCH; +PANTOPRAZOLE SO40 MG PO; +PHENYLEPHRINE/KETOROLAC 4 ML in Balanced Salt Solution 500 ML OPH SCH; +POVIDONE IODINE 5% OPHTHALMIC 30 ML BOTTLE OPH ONE; +POVIDONE IODINE 5% OPHTHALMIC 30 ML BOTTLE OPH SCH; +Phenylephrine Hydrochloride 2 ML BOT OPH ONE; +Phenylephrine Hydrochloride 2 ML BOT OPH SCH; +Proparacaine Hydrochloride 15 ML BOT OPH ONE; +Proparacaine Hydrochloride 15 ML BOT OPH SCH; +SODIUM CHLORIDE 0.9% 1,000 ML IV SCH; +TETRACAINE HCL 10 DROP BOT OPH SCH; +TOUJEO SOL300 UNIT/1 SQ; +TROPICAMIDE 3 ML BOT OPH ONE; +TROPICAMIDE 3 ML BOT OPH SCH; +Tetracaine Hydrochloride 0.5% 4 ML BOT OPH ONE; +Tetracaine Hydrochloride 0.5% 4 ML BOT OPH SCH; +prednisoLONE acetate 1% OPHTHALMIC 5 ML BOT OPH ONE; +prednisoLONE acetate 1% OPHTHALMIC 5 ML BOT OPH SCH
[2024-05-14 06:30] VITALS: BP 123/84
[2024-05-14 08:16] VITALS: BP 114/49
[2024-05-14 08:21] VITALS: BP 123/63
[2024-05-14 08:34] VITALS: BP 117/72
== END | disposition home or self-care (01) ==
LOC: SDC 04-11 08:00
PROVIDERS: ATTEND Ophthalmology
DX: E11.36 Type 2 diabetes mellitus with diabetic cataract (principal); H25.11 Age-related nuclear cataract, right eye; E11.40 Type 2 diabetes mellitus with diabetic neuropathy, unspecified; I11.0 Hypertensive heart disease with heart failure; I50.9 Heart failure, unspecified; I25.10 Atherosclerotic heart disease of native coronary artery without angina pectoris; K21.9 Gastro-esophageal reflux disease without esophagitis; M17.12 Unilateral primary osteoarthritis, left knee; E78.5 Hyperlipidemia, unspecified; Z87.891 Personal history of nicotine dependence; Z98.890 Other specified postprocedural states; Z79.899 Other long term (current) drug therapy; Z82.49 Family history of ischemic heart disease and other diseases of the circulatory system

== ENCOUNTER → 2024-05-26 | Outpatient (CLI) | payer OTHER ==
[~2024-05-26] MED LIST changes: -Balanced Salt Solution 500 ML OPH SCH; -Cefuroxime Sodium 5 MG in BALANCED SALT IRRIG SOLN NO.2 0.5 ML,SYRINGE, DISPOSABLE, 10 ... IO SCH; -Cyclopentolate Hydrochloride 1% 2 ML BOTTLE OPH ONE; -Cyclopentolate Hydrochloride 1% 2 ML BOTTLE OPH SCH; -Midazolam Hydrochloride 2 MG/2 ML VIAL IV ONE; -OFLOXACIN 0.3% 5 ML BOTTLE ONE; -OFLOXACIN 0.3% 5 ML BOTTLE OPH SCH; -PHENYLEPHRINE/KETOROLAC 4 ML in Balanced Salt Solution 500 ML OPH SCH; -POVIDONE IODINE 5% OPHTHALMIC 30 ML BOTTLE OPH ONE; -POVIDONE IODINE 5% OPHTHALMIC 30 ML BOTTLE OPH SCH; -Phenylephrine Hydrochloride 2 ML BOT OPH ONE; -Phenylephrine Hydrochloride 2 ML BOT OPH SCH; -Proparacaine Hydrochloride 15 ML BOT OPH ONE; -Proparacaine Hydrochloride 15 ML BOT OPH SCH; -SODIUM CHLORIDE 0.9% 1,000 ML IV SCH; -TETRACAINE HCL 10 DROP BOT OPH SCH; -TROPICAMIDE 3 ML BOT OPH ONE; -TROPICAMIDE 3 ML BOT OPH SCH; -Tetracaine Hydrochloride 0.5% 4 ML BOT OPH ONE; -Tetracaine Hydrochloride 0.5% 4 ML BOT OPH SCH; -prednisoLONE acetate 1% OPHTHALMIC 5 ML BOT OPH ONE; -prednisoLONE acetate 1% OPHTHALMIC 5 ML BOT OPH SCH
== END | disposition home or self-care (01) ==
LOC: RAD 14:27
PROVIDERS: ATTEND Internal Medicine
DX: M79.674 Pain in right toe(s) (principal)

== ENCOUNTER → 2024-07-16 | Day surgery (SDC) | payer OTHER ==
[~2024-07-16] VITALS: Ht 170.1 cm; Wt 111.1 kg
[~2024-07-16] MED LIST changes: +ATROPINE SULFATE 1% 2 ML BOTTLE ONE; +ATROPINE SULFATE 1% 2 ML BOTTLE OPH SCH; +Balanced Salt Solution 500 ML OPH SCH; +Cefuroxime Sodium 5 MG in BALANCED SALT IRRIG SOLN NO.2 0.5 ML,SYRINGE, DISPOSABLE, 10 ... IO SCH; +Cyclopentolate Hydrochloride 1% 2 ML BOTTLE OPH ONE; +Cyclopentolate Hydrochloride 1% 2 ML BOTTLE OPH SCH; +Midazolam Hydrochloride 2 MG/2 ML VIAL IV ONE; +OFLOXACIN 0.3% 5 ML BOTTLE ONE; +OFLOXACIN 0.3% 5 ML BOTTLE OPH SCH; +PHENYLEPHRINE/KETOROLAC 4 ML in Balanced Salt Solution 500 ML OPH SCH; +POVIDONE IODINE 5% OPHTHALMIC 30 ML BOTTLE OPH ONE; +POVIDONE IODINE 5% OPHTHALMIC 30 ML BOTTLE OPH SCH; +Phenylephrine Hydrochloride 2 ML BOT OPH ONE; +Phenylephrine Hydrochloride 2 ML BOT OPH SCH; +Proparacaine Hydrochloride 15 ML BOT OPH ONE; +Proparacaine Hydrochloride 15 ML BOT OPH SCH; +SODIUM CHLORIDE 0.9% 1,000 ML IV SCH; +TROPICAMIDE 3 ML BOT OPH ONE; +TROPICAMIDE 3 ML BOT OPH SCH; +Tetracaine Hydrochloride 0.5% 4 ML BOT OPH ONE; +Tetracaine Hydrochloride 0.5% 4 ML BOT OPH SCH; +prednisoLONE acetate 1% OPHTHALMIC 5 ML BOT OPH ONE; +prednisoLONE acetate 1% OPHTHALMIC 5 ML BOT OPH SCH
[2024-07-16 06:40] VITALS: BP 152/83
[2024-07-16 10:44] VITALS: BP 126/66
[2024-07-16 11:00] VITALS: BP 146/97
[2024-07-16 11:09] VITALS: BP 123/78
== END | disposition home or self-care (01) ==
LOC: SDC 07-14 12:30
PROVIDERS: ATTEND Ophthalmology
DX: E11.36 Type 2 diabetes mellitus with diabetic cataract (principal); H25.812 Combined forms of age-related cataract, left eye; I10 Essential (primary) hypertension; I25.10 Atherosclerotic heart disease of native coronary artery without angina pectoris; F32.A Depression, unspecified; K21.9 Gastro-esophageal reflux disease without esophagitis; E78.00 Pure hypercholesterolemia, unspecified; M10.9 Gout, unspecified; I25.2 Old myocardial infarction; Z79.899 Other long term (current) drug therapy

== ENCOUNTER → 2024-11-10 | Outpatient (CLI) | payer MEDICARE ==
[~2024-11-10] MED LIST changes: -ATROPINE SULFATE 1% 2 ML BOTTLE ONE; -ATROPINE SULFATE 1% 2 ML BOTTLE OPH SCH; -Balanced Salt Solution 500 ML OPH SCH; -Cefuroxime Sodium 5 MG in BALANCED SALT IRRIG SOLN NO.2 0.5 ML,SYRINGE, DISPOSABLE, 10 ... IO SCH; -Cyclopentolate Hydrochloride 1% 2 ML BOTTLE OPH ONE; -Cyclopentolate Hydrochloride 1% 2 ML BOTTLE OPH SCH; -Midazolam Hydrochloride 2 MG/2 ML VIAL IV ONE; -OFLOXACIN 0.3% 5 ML BOTTLE ONE; -OFLOXACIN 0.3% 5 ML BOTTLE OPH SCH; -PHENYLEPHRINE/KETOROLAC 4 ML in Balanced Salt Solution 500 ML OPH SCH; -POVIDONE IODINE 5% OPHTHALMIC 30 ML BOTTLE OPH ONE; -POVIDONE IODINE 5% OPHTHALMIC 30 ML BOTTLE OPH SCH; -Phenylephrine Hydrochloride 2 ML BOT OPH ONE; -Phenylephrine Hydrochloride 2 ML BOT OPH SCH; -Proparacaine Hydrochloride 15 ML BOT OPH ONE; -Proparacaine Hydrochloride 15 ML BOT OPH SCH; -SODIUM CHLORIDE 0.9% 1,000 ML IV SCH; -TROPICAMIDE 3 ML BOT OPH ONE; -TROPICAMIDE 3 ML BOT OPH SCH; -Tetracaine Hydrochloride 0.5% 4 ML BOT OPH ONE; -Tetracaine Hydrochloride 0.5% 4 ML BOT OPH SCH; -prednisoLONE acetate 1% OPHTHALMIC 5 ML BOT OPH ONE; -prednisoLONE acetate 1% OPHTHALMIC 5 ML BOT OPH SCH
== END | disposition home or self-care (01) ==
LOC: US 01:07
PROVIDERS: ATTEND Internal Medicine
DX: M25.841 Other specified joint disorders, right hand (principal); L98.9 Disorder of the skin and subcutaneous tissue, unspecified

== ENCOUNTER 2025-04-11 14:07 | Emergency (ER) | payer MEDICARE ==
[~2025-04-11] VITALS: Ht 170.1 cm; Wt 108.0 kg
[2025-04-11 14:36] LABS: BASO # 0.0 10*3/uL (0.0-0.1); BASO % 0.3 % (0.0-1.0); EOS # 1.5 10*3/uL (0.0-0.4); EOS % 12.8 % (1.0-4.0); MEAN CELL VOLUME 95.4 fl (80.0-94.0); MEAN CORPUSCULAR HGB 31.1 pg (27.0-31.0); MEAN PLATELET VOLUME 10.8 fl (9.6-12.3); MONO # 1.1 10*3/uL (0.1-1.0); MONO % 9.2 % (3.0-9.0); NEUT # 6.3 10*3/uL (2.3-7.9); NEUT % 55.4 % (47.0-73.0); NUCLEATED RED BLOOD CELL 0.0 % (0.0-0.0); NUCLEATED RED BLOOD CELL 0.0 10*3/uL (0.0-0.0); PLATELET COUNT AUTOMATED 265 10*3/uL (130-400); RED CELL DISTRI WIDTH 14.2 % (0-14.5)
[2025-04-11 14:47] LABS: ACT PARTIAL THROMBO TIME 28.0 SECONDS (20.0-32.1)
[2025-04-11 14:53] LABS: BUN 6 mg/dl (9-23); SGPT/ALT 23 U/L (5-49)
[2025-04-11] MEDS ORDERED: ASPIRIN, CHEWABLE 81 MG TAB PO ONE (16:00)
[2025-04-11] MEDS ORDERED: HEPARIN SODIUM 250 ML IV SCH (16:40)
[2025-04-11 17:00] VITALS: BP 102/62
== END 2025-04-11 18:51 | disposition short-term general hospital (02) ==
LOC: ED 14:07
PROVIDERS: Nurse Practitioner Family
DX: I21.4 Non-ST elevation (NSTEMI) myocardial infarction (principal); E11.9 Type 2 diabetes mellitus without complications; I10 Essential (primary) hypertension; I25.10 Atherosclerotic heart disease of native coronary artery without angina pectoris; F31.9 Bipolar disorder, unspecified; K21.9 Gastro-esophageal reflux disease without esophagitis; E78.00 Pure hypercholesterolemia, unspecified; M10.9 Gout, unspecified; Z98.890 Other specified postprocedural states